=== PATIENT | female | born 1995 | race Caucasian/White ===

== ENCOUNTER 2019-06-30 23:55 | Observation (INO) | payer OTHER, SELFPAY ==
--- NOTE | ~2019-06-30 | XR_ITS ---
XR chest 2V DATE: 07/01/2019 00:55 INDICATION: Cough and congestion for one week TECHNIQUE: PA and lateral views COMPARISON: None FINDINGS: Normal heart size. No hilar or mediastinal enlargement is evident. There is patchy infiltra te in the right upper lobe. There is mild infiltrate in the right lower lung. The left lung appears c lear. No pleural effusion or pulmonary vascular congestion or pneumothorax. IMPRESSION: Right upper and minimal right lower lobe infiltrates. Pneumonia is suspected. Reviewed, dictated and finalized at location A. Y LEVEL PROGRAMMER
--- NOTE | ~2019-06-30 | CT_ITS ---
EXAMINATION: CTA chest PE protocol DATE: 07/01/2019 02:38 INDICATION: Shortness of breath. Elevated d-dimer. TECHNIQUE: Computed tomography angiography (CTA) of the chest was performed with 100 mL Omnipaque-350 intravenous contrast timed to evaluate the pulmonary arteries. Coronal maximum intensity projection 3D-reconstructions were created by the technologist. Automated exposure control and iterative reconst ruction technique were employed. Exam dose: 226.66 mGy-cm total exam DLP. COMPARISON: 07/01/2019 2 view chest FINDINGS: There is suboptimal opacification the pulmonary arteries. No apparent central pulmonary emb olism is identified. No thoracic aortic aneurysm or dissection. No hilar or mediastinal mass lesion or lymphadenopathy. Normal heart size. No pericardial or pleural effusion. Included upper abdominal structures including adrenal glands are unremarkable. There is prominent patchy right upper lobe consolidation and localized atelectasis/consolidation in t he posterolateral right lower lobe. There is minimal infiltrate or atelectasis in the left lower lobe . IMPRESSION: Suboptimal contrast enhancement of the pulmonary arteries; no apparent central pulmonary embolism Extensive right upper lobe consolidation and lesser right lower lobe and minimal left lower lobe infi ltrates, suggesting multilobar pneumonia Reviewed, dictated and finalized at Location [facility]. Reviewed, dictated and finalized at location A. BASE SECURITY ADMINISTRATOR IMPRESSION: Suboptimal contrast enhancement of the pulmonary arteries; no appa rent central pulmonary embolism Extensive right upper lobe consolidation and lesser right lower lobe and minima l left lower lobe infiltrates, suggesting multilobar pneumonia
[2019-06-30 23:59] VITALS: BP 119/82; PULSE 120; RESP 20; TEMP 36.9; O2SAT 96
[2019-07-01] VITALS (15 sets, daily range): BP systolic 112–132; BP diastolic 58–77; PULSE 97–118; RESP 16–20; TEMP 36.7–38.1; O2SAT 92–99; BMI 24.4
--- NOTE | 2019-07-01 00:48 | ED.URI ---
HPI - URI/Sore Throat General Chief Complaint: Upper Respiratory Infection Stated Complaint: bronchitis Time Seen by Provider: 07/01/19 00:29 Source: patient and RN notes reviewed Mode of arrival: ambulatory Limitations: no limitations History of Present Illness HPI Narrative: Pt is a 24 y/o female who presents to the ED with c/o nonproductive cough and chest congestion starting 1 week ago. She notes that she feels like she has phlegm stuck in her airway, but denies producing any phlegm with her cough. Pt also reports chest tightness, wheezing, and a subjective fever. She states that she believes she may have bronchitis. She notes that she took an OTC medication for her cough earlier today. Pt states that she is currently taking control. MD elicited complaint: cough and other (chest congestion) Onset (ago): week(s) (1) Associated symptoms: fever (subjective), nasal congestion and other (chest tightness; wheezing) Treatments prior to arrival: cold medicine Related Data Home Medications Medication Instructions Recorded Confirmed levonorgestrel-ethinyl estrad 1 tablet PO DAILY 07/01/19 [Aviane] Allergies Allergy/AdvReac Type Severity Reaction Status Date / Time No Known Allergies Allergy Verified 06/30/19 23:56 Review of Systems Review of Systems: All systems reviewed & are unremarkable except as noted in HPI and below Constitutional: Constitutional: Reports fever(s) (subjective) ENT: Reports nasal congestion Cardiovascular: Cardiovascular: Reports other (chest tightness) Respiratory: Respiratory: Reports chest congestion, Reports cough and Reports wheezing PMFSH Past Medical History Medical History Healthy female adult Surgical History Surgical History No significant past surgical history Family History Family History (Updated 01/07/14 @ 07:13 by DOCTOR UNKNOWN) Grandparent Hypertension Father Family history of elevated blood lipids Social History Social History Smoking status: Never smoker Second hand tobacco smoke exposure: No Alcohol intake: never Gender identity (if verbalized by the patient): Female Exam Const: General: cooperative, healthy appearing, comfortable, no acute distress, well developed, alert and awake; No confusion Orientation/consciousness: oriented to person, oriented to place, oriented to time, patient oriented x3 and No confusion Limitations: no limitations HENMT: Head: normal to inspection, normocephalic and atraumatic Mouth: Yes Normal oral and palatal mucosa present, Yes lip normal, Yes tongue normal and Yes oropharynx normal Throat: posterior oropharynx normal, tonsils normal and uvula midline Neck: Neck: normal visual inspection Chest: Chest palpation & inspection: normal inspection of the chest Resp: Effort & Inspection: normal respiratory effort, able to speak in complete sentences, no respiratory distress and not tachypneic Auscultation: clear to auscultation bilaterally, no crackles, no rales, no rhonchi and no wheezes Cardio: Rate: regular rate Rhythm: regular rhythm GI: Inspection: normal to inspection GI Palp: No abdominal tenderness, Yes Soft to palpation, No Tenderness to palpation present (GI), No Guarding due to palpation present (GI), No Rigid due to palpation and No Rebound tenderness present Auscultation: normal bowel sounds Skin: General skin exam: normal color, no rashes or lesions noted, elasticity normal and turgor normal Neuro: General: oriented to person, oriented to place, oriented to time, patient oriented x3, tone normal, moves all extremities, Normal light touch and pain sensation, no meningeal signs, no focal motor deficits, CN's II-XI intact bilaterally and No confusion Cranial nerves: Yes Equal, round and reactive pupils present Speech: No Abnormal speech present Sensor
[2019-07-01 01:14] LABS: Basophils Percent Auto 0.4 % (0.2-1.2); Eosinophils Absolute Auto 0.1 K/mm3 (0-0.3); Eosinophils Percent Auto 1.9 % (0-4.4); Hematocrit 39.4 % (37.0-47.0); Hemoglobin 13.6 g/dL (12.0-15.0); Immature Granulocyte Absolute 0.01 K/mm3 (0.00-0.031); Immature Granulocyte Percent A 0.2 % (0-0.5); Lymphocytes Absolute Auto 1.05 K/mm3 (0.9-3.2); Lymphocytes Percent Auto 18.6 % (18.3-44.2); Mean Corpuscular HGB Conc 34.5 g/dl (32-36); Mean Corpuscular Hemoglobin 29.2 pg (26-34); Mean Corpuscular Volume 84.5 fl (80-100); Mean Platelet Volume 9.6 fl (7.4-10.4); Monocytes Absolute Auto 0.5 K/mm3 (0.1-0.6); Monocytes Percent Auto 8.3 % (2.6-8.5); Neutrophils Percent Auto 70.6 % (45.5-73.1); Platelet Count Result 209 k/mm3 (150-375); Red Blood Count 4.66 M/mm3 (4.2-5.4); Red Cell Distribution Width 11.7 % (11.5-14.5); White Blood Count 5.7 K/mm3 (4.5-10.0)
[2019-07-01 01:21] LABS: Blood Urea Nitrogen 5 mg/dL (7-17); Calcium 8.8 mg/dL (8.4-10.2); Carbon Dioxide 23 mmol/L (22-30); Chloride 101 mmol/L (98-107); Estimated CRCL calculation 104 ml/min; Estimated Glomerular Filt Rate > 60; Glucose 111 mg/dL (65-105); Potassium 3.9 mmol/L (3.4-5.0); Sodium 135 mmol/L (137-145)
[2019-07-01 01:22] LABS: D Dimer 1.33 ug/mL (<0.48)
[2019-07-01 01:33] LABS: Troponin I < 0.012 ng/mL (0.000-0.034)
--- NOTE | 2019-07-01 02:29 | PC.NURSE ---
Patient taken to CT.
[2019-07-01] MEDS: SODIUM CHLORIDE 0.9% IV 1,000 ML 999 ML IV CONT (03:27)
--- NOTE | 2019-07-01 04:17 | PM.IMHP ---
H&P: HPI History of Present Illness Chief complaint: pneumonia Narrative: This is a pleasant 24 year old female previously known to be healthy who presented to the hospital with a complaint of chest congestion and a poorly productive cough for the past week. Associated symptoms include fever, diaphoresis, sore throat, chest tightness, and wheezing. She has also noticed decreased urine output and decreased appetite. Sick contacts++ as her boyfriend and sister both have had viral symptoms. The patient was evaluated in the ER tonight and found to have upper lobe pneumonia on CTA chest. The patient admits she did not receive a flu shot this year. No other complaints. Review of Systems Review of Systems: All systems reviewed & are unremarkable except as noted in HPI and below PMFSH Past Medical History Medical History Healthy female adult Surgical History Surgical History No significant past surgical history Family History Family History Grandparent Hypertension Father Family history of elevated blood lipids Social History Social History Smoking status: Never smoker Second hand tobacco smoke exposure: No Alcohol intake: never Substance use: never Gender identity (if verbalized by the patient): Female Spiritual care concerns: No Agree to blood products: No Meds Home Medications and Allergies Home Medications Medication Instructions Recorded Confirmed Type levonorgestrel-ethinyl estrad 1 tablet PO DAILY 07/01/19 07/01/19 History [Aviane] Allergies Allergy/AdvReac Type Severity Reaction Status Date / Time No Known Allergies Allergy Verified 06/30/19 23:56 Vital Signs Vital Signs - 24 hr 06/30/19 23:59 07/01/19 00:27 07/01/19 00:29 Temperature 36.9 C 37.5 C Pulse Rate 120 H 113 H Respiratory Rate 20 20 Blood Pressure 119/82 132/76 Pulse Oximetry 96 99 99 07/01/19 03:25 Temperature 38.1 C H Pulse Rate 109 H Respiratory Rate 20 Blood Pressure 114/70 Pulse Oximetry 96 Exam Const: General: cooperative, alert, awake, ill appearing, tired appearing and other (dehydrated++) Nutritional Appearance: well nourished Orientation/consciousness: patient oriented x3 HENMT: Head: normal to inspection General nose exam: Normal external nose present Face and sinus: normal facial exam Mouth: Yes Normal oral and palatal mucosa present and Yes oropharynx normal Eyes: Pupils: Equal, round and reactive pupils present EOM: EOMs intact bilaterally Neck: Neck: supple and no JVD Thyroid: thyroid normal Lymphatic: lymphadenopathy not noted Resp: Effort & Inspection: normal respiratory effort Auscultation: rales (upper+) bilateral Cardio: Rate: tachycardic Rhythm: regular rhythm Heart sounds: no murmurs GI: Inspection: normal to inspection Auscultation: normal bowel sounds Skin: General skin exam: normal color and no rashes or lesions noted Neuro: General: patient oriented x3 Cranial nerves: Yes CN's II-XII intact bilaterally and Yes Equal, round and reactive pupils present Speech: normal speech Motor exam (neuro): 5/5 motor strength present throughout Sensory Exam: normal sensation Extrem: General: normal to inspection and no edema Psych: Mental Status: mental status grossly normal Affect: normal affect H&P: Results Labs Labs: Short CBC 07/01/19 Range/Units 01:02 WBC 5.7 (4.5-10.0) K/mm3 Hgb 13.6 (12.0-15.0) g/dL Hct 39.4 (37.0-47.0) % Plt Count 209 (150-375) k/mm3 [facility] 07/01/19 01:02 Sodium 135 L Potassium 3.9 Chloride 101 Carbon Dioxide 23 BUN 5 L Creatinine 0.60 L Glucose 111 H Calcium 8.8 Cardiac Enzymes 07/01/19 Range/Units 01:02 Troponin I < 0.012 (0.000-0.034) ng/mL Ass
--- NOTE | 2019-07-01 04:52 | ADMGEN ---
This patient, Jeanna Jensen, was admitted to 2 Medical Room 242-. Patient/family oriented to hospital policies and general routines including ID bracelet, bed and alarms, visiting hours, pain management, procedures, bathroom and other care routines, personal items, smoking policy, room service/diet, and visiting hours. Valuables list has been completed. Information on how to activate the Rapid Response Team has been discussed. Patient/Family are encouraged to report perceived risks to care and to ask questions if they do not understand what they are told or what they should do.
[2019-07-01] MEDS: LACTATED RINGERS 1,000 ML 125 ML IV CONT ×3 (05:07→20:34)
[2019-07-01] MEDS: GUAIFENESIN/DEXTROMETHORPHAN 10 ML UDC PO (05:50)
[2019-07-01] MEDS: MELATONIN 3 MG TABLET PO ×2 (05:52→20:33)
[2019-07-01] MEDS: BENZOCAINE/MENTHOL (*BKC) 18 EA LOZENGE 1 LOZENGE PO (11:41)
--- NOTE | 2019-07-01 16:17 | PM.IMPN ---
Progress Note: A&P Assessment and Plan (1) Community acquired pneumonia: Qualifiers: Laterality: right Lung location: unspecified part of lung Qualified Code(s): J18.9 - Pneumonia, unspecified organism Code(s): J18.9 - Pneumonia, unspecified organism Status: Acute Assessment and Plan: -----continue ceftriaxone and azithromycin as well as breathing treatments. Influenza is negative. White blood cell count is okay. No hypoxia noted. (2) Dehydration: Code(s): E86.0 - Dehydration Status: Acute Assessment and Plan: Patient is drinking orally and doing well. She does have a decreased appetite. (3) Sinus tachycardia: Code(s): R00.0 - Tachycardia, unspecified Status: Acute Assessment and Plan: -----secondary to pneumonia. No pain to palpation or worrisome signs or symptoms. Continue to monitor Additional Plan Date of service was 07/01/2019 at 4 am. Time Spent With Patient Time with patient: 25 - 35 minutes Subjective Date/time seen: 07/01/19 16:17 Interval history: Pt is a 24-year-old female here for pneumonia. Patient was seen today and states her breathing and dyspnea on exertion is much better. She feels slightly dyspneic when walking to the bathroom but has improved significantly since yesterday. She said she is still coughing but not coughing up anything. She has not felt febrile. She denies nausea, vomiting, diarrhea, constipation, abdominal pain, or leg swelling. No chest pain today or palpitations. She says she has a decreased appetite. Review of Systems Review of Systems: All systems reviewed & are unremarkable except as noted in HPI and below Exam Narrative: Exam Narrative: General: Well developed well nourished patient resting comfortably in bed in NAD HEENT: normocephalic Neck: supple Neuro: Alert and oriented x4 CV:RRR on exam today. No murmurs Resp: Decreased breath sounds in the right lung but overall good breath sounds with no wheezing or rhonchi. Abd: Soft, non distended. No pain to palpation. Positive bowel sounds Extremities: No swelling, erythema, or pain to palpation. Objective Data Vital Signs Vital Signs: Vital Signs - 24 hr 06/30/19 23:59 07/01/19 00:27 07/01/19 00:29 Temperature 98.5 F 99.5 F Pulse Rate 120 H 113 H Respiratory Rate 20 20 Blood Pressure 119/82 132/76 Pulse Oximetry 96 99 99 07/01/19 03:25 07/01/19 04:20 07/01/19 06:00 Temperature 100.5 F H 100.3 F H 98.5 F Pulse Rate 109 H 107 H 107 H Respiratory Rate 20 20 18 Blood Pressure 114/70 120/77 117/58 L Pulse Oximetry 96 98 97 07/01/19 08:36 07/01/19 08:37 07/01/19 08:40 Temperature Pulse Rate 102 H 105 H Respiratory Rate 18 18 Blood Pressure Pulse Oximetry 92 07/01/19 14:00 07/01/19 15:06 07/01/19 15:13 Temperature 98.1 F Pulse Rate 97 102 H 104 H Respiratory Rate 16 18 18 Blood Pressure 112/60 Pulse Oximetry 97 Intake/Output Intake/Output: Intake & Output 06/28/19 06/29/19 06/30/19 07/01/19 23:59 23:59 23:59 23:59 Intake Total 2300 Output Total 600 Balance 1700 Meds/Results Medications: Active Medications Generic Name Dose Route Start Last Admin Trade Name Freq PRN Reason Stop Dose Admin Acetaminophen 650 mg 07/01/19 04:34 Tylenol Tablet PO Q4H PRN Mild Pain (1-3) or Fever Benzocaine 1 lozenge 07/01/19 10:25 07/01/19 11:41 Chloraseptic Lozenge PO 1 lozenge PRN PRN Administration Sore Throat Guaifenesin/Dextromethorphan 10 ml 07/01/19 05:19 07/01/19 05:50 Robitussin-Dm Syrup PO 10 ml Q4H PRN Administration Cough Lactated Ringer's 1,000 mls @ 125 mls/hr 07/01/19 03:35 07/01/19 12:29 Lr - Lactated Ringers Iv IV CONT 125 mls/hr .Q8H ANNA Administration Ceftriaxone Sodium/Dextrose 1 gm in 50 mls @ 100 mls/hr 07/02/19 06:00 Rocephin 1 Gm/D5w 50 Ml IVPB Q24H ANNA Azithromycin 250 mg/
--- NOTE | 2019-07-01 19:09 | PHAR ---
Aviane 0.1 mg/0.02 mg was seen in pharmacy and sent back up to 2 medical.
[2019-07-02] VITALS (11 sets, daily range): BP systolic 119–121; BP diastolic 59–69; PULSE 87–108; RESP 14–20; TEMP 36–37.2; O2SAT 96–99
[2019-07-02] MEDS: LACTATED RINGERS 1,000 ML 125 ML IV CONT ×2 (04:42→17:49)
[2019-07-02 05:58] LABS: Basophils Percent Auto 0.4 % (0.2-1.2); Eosinophils Absolute Auto 0.1 K/mm3 (0-0.3); Eosinophils Percent Auto 2.4 % (0-4.4); Hematocrit 35.9 % (37.0-47.0); Hemoglobin 11.8 g/dL (12.0-15.0); Immature Granulocyte Absolute 0.01 K/mm3 (0.00-0.031); Immature Granulocyte Percent A 0.2 % (0-0.5); Lymphocytes Absolute Auto 1.42 K/mm3 (0.9-3.2); Mean Corpuscular HGB Conc 32.9 g/dl (32-36); Mean Corpuscular Volume 88.2 fl (80-100); Mean Platelet Volume 10.2 fl (7.4-10.4); Monocytes Absolute Auto 0.4 K/mm3 (0.1-0.6); Monocytes Percent Auto 7.9 % (2.6-8.5); Neutrophils Absolute Auto 3.1 K/mm3 (1.3-6.7); Neutrophils Percent Auto 61.1 % (45.5-73.1); Platelet Count Result 198 k/mm3 (150-375); Red Blood Count 4.07 M/mm3 (4.2-5.4); White Blood Count 5.1 K/mm3 (4.5-10.0)
[2019-07-02 06:21] LABS: Blood Urea Nitrogen 3 mg/dL (7-17); Calcium 8.3 mg/dL (8.4-10.2); Carbon Dioxide 24 mmol/L (22-30); Chloride 102 mmol/L (98-107); Estimated CRCL calculation 120 ml/min; Estimated Glomerular Filt Rate > 60; Glucose 117 mg/dL (65-105); Magnesium 2.1 mg/dL (1.6-2.3); Potassium 3.6 mmol/L (3.4-5.0); Sodium 139 mmol/L (137-145)
[2019-07-02] MEDS: ACETAMINOPHEN 325 MG TABLET 650 MG PO (07:10)
--- NOTE | 2019-07-02 11:43 | PM.IMPN ---
Progress Note: A&P Assessment and Plan (1) Community acquired pneumonia: Qualifiers: Laterality: right Lung location: unspecified part of lung Qualified Code(s): J18.9 - Pneumonia, unspecified organism Code(s): J18.9 - Pneumonia, unspecified organism Status: Acute Assessment and Plan: continue ceftriaxone and azithromycin (day #3) as well as breathing treatments. Influenza is negative. White blood cell count is okay. No hypoxia noted. Will stay for another day of abx and likely d/c tomorrow. She will need to find a PCP and follow up with them and get a CXR in 6 weeks after. (2) Dehydration: Code(s): E86.0 - Dehydration Status: Acute Assessment and Plan: -----improved. Pt is not eating and drinking well and her appetite has improved. (3) Sinus tachycardia: Code(s): R00.0 - Tachycardia, unspecified Status: Acute Assessment and Plan: -----Likely secondary to pneumonia and dehydration. monitor heart rate. no symptoms. Additional Plan Date of service was 07/01/2019 at 4 am. Subjective Date/time seen: 07/02/19 11:43 Interval history: Pt is a 24-year-old female here for pneumonia. Patient was seen today with mom at bedside and states she is feeling much better. Her cough has improved and she has no HILL or SOB. She is still not coughing up anything. She started her menstrual cycle and is having cramps and requested NSAIDs. She denies chest pain or palpitations. Exam Narrative: Exam Narrative: General: Well developed well nourished patient resting comfortably in bed in NAD HEENT: normocephalic Neck: supple Neuro: Alert and oriented x4 CV:RRR on exam today. No murmurs Resp: Decreased breath sounds in the right lung but overall good breath sounds with no wheezing or rhonchi. Abd: Soft, non distended. No pain to palpation. Positive bowel sounds Extremities: No swelling, erythema, or pain to palpation. Objective Data Vital Signs Vital Signs: Vital Signs - 24 hr 07/01/19 14:00 07/01/19 15:06 07/01/19 15:13 Temperature 98.1 F Pulse Rate 97 102 H 104 H Respiratory Rate 16 18 18 Blood Pressure 112/60 Pulse Oximetry 97 02/19/20 19:31 07/01/19 19:36 07/01/19 19:37 Temperature Pulse Rate 103 H 105 H Respiratory Rate 18 18 Blood Pressure Pulse Oximetry 98 07/01/19 22:00 07/02/19 01:43 07/02/19 01:50 Temperature 98.0 F Pulse Rate 118 H 108 H 103 H Respiratory Rate 16 18 18 Blood Pressure 124/66 Pulse Oximetry 99 07/02/19 06:00 07/02/19 07:55 07/02/19 08:05 Temperature 99.0 F Pulse Rate 101 H 102 H 105 H Respiratory Rate 16 20 20 Blood Pressure 121/69 Pulse Oximetry 98 Intake/Output Intake/Output: Intake & Output 06/29/19 06/30/19 07/01/19 07/02/19 23:59 23:59 23:59 23:59 Intake Total 4740 1630 Output Total 2400 650 Balance 2340 980 Meds/Results Medications: Active Medications Generic Name Dose Route Start Last Admin Trade Name Freq PRN Reason Stop Dose Admin Acetaminophen 650 mg 07/01/19 04:34 07/02/19 07:10 Tylenol Tablet PO 650 mg Q4H PRN Administration Mild Pain (1-3) or Fever Benzocaine 1 lozenge 07/01/19 10:25 07/01/19 11:41 Chloraseptic Lozenge PO 1 lozenge PRN PRN Administration Sore Throat Guaifenesin/Dextromethorphan 10 ml 07/01/19 05:19 07/01/19 05:50 Robitussin-Dm Syrup PO 10 ml Q4H PRN Administration Cough Lactated Ringer's 1,000 mls @ 125 mls/hr 07/01/19 03:35 07/02/19 04:42 Lr - Lactated Ringers Iv IV CONT 125 mls/hr .Q8H ANNA Administration Ceftriaxone Sodium/Dextrose 1 gm in 50 mls @ 100 mls/hr 07/02/19 06:00 07/02/19 06:15 Rocephin 1 Gm/D5w 50 Ml IVPB Infused Q24H ANNA Infusion Azithromycin 250 mg/ Dextrose 250 mls @ 250 mls/hr 07/02/19 04:00 07/02/19 05:52 IVPB Infused Q24H ANNA Infusion Ibuprofen 400 mg 07/02/19 07:44 Motrin PO Q6H
[2019-07-02 18:21] LABS: Pneumococcal Antigen Urine Not Detected (Not Detected)
[2019-07-02] MEDS: MELATONIN 3 MG TABLET PO (20:11)
[2019-07-03 01:55] VITALS: PULSE 86; RESP 20; O2SAT 97
[2019-07-03] MEDS: IBUPROFEN 400 MG TABLET PO ×2 (02:00→11:04)
[2019-07-03] MEDS: LACTATED RINGERS 1,000 ML 125 ML IV CONT (02:00)
[2019-07-03 02:05] VITALS: PULSE 88; RESP 20
--- NOTE | 2019-07-03 03:36 | PCRCNOTE ---
[facility]
[2019-07-03 04:47] VITALS: BP 115/60; PULSE 80; RESP 16; TEMP 36.3; O2SAT 98
[2019-07-03 05:57] LABS: Alanine Aminotransferase 32 U/L (4-35); Albumin Level 3.9 g/dL (3.5-5.1); Alkaline Phosphatase 52 U/L (38-126); Aspartate Amino Transferase 32 U/L (14-36); Bilirubin,Total 0.2 mg/dL (0.2-1.3); Blood Urea Nitrogen 3 mg/dL (7-17); Calcium 8.9 mg/dL (8.4-10.2); Carbon Dioxide 27 mmol/L (22-30); Chloride 103 mmol/L (98-107); Estimated CRCL calculation 120 ml/min; Estimated Glomerular Filt Rate > 60; Glucose 117 mg/dL (65-105); Potassium 3.8 mmol/L (3.4-5.0); Sodium 140 mmol/L (137-145)
[2019-07-03 06:35] LABS: HIV 1/2 Ab P24 Ag Result Negative (Negative)
[2019-07-03 06:50] LABS: Hematocrit 37.8 % (37.0-47.0); Hemoglobin 12.5 g/dL (12.0-15.0); Mean Corpuscular HGB Conc 33.1 g/dl (32-36); Mean Corpuscular Hemoglobin 29.1 pg (26-34); Mean Corpuscular Volume 87.9 fl (80-100); Mean Platelet Volume 10.2 fl (7.4-10.4); Platelet Count Result 258 k/mm3 (150-375); White Blood Count 4.9 K/mm3 (4.5-10.0)
[2019-07-03 08:13] VITALS: PULSE 84; RESP 18; O2SAT 98
[2019-07-03 08:27] VITALS: PULSE 86; RESP 20
--- NOTE | 2019-07-03 12:34 | PM.DS ---
DS: Diagnosis Admitting Diagnosis Admitting Diagnosis: Pneumonia, unspecified organism Discharge Diagnosis (1) Community acquired pneumonia: Qualifiers: Laterality: right Lung location: unspecified part of lung Qualified Code(s): J18.9 - Pneumonia, unspecified organism Code(s): J18.9 - Pneumonia, unspecified organism Status: Acute (2) Dehydration: Code(s): E86.0 - Dehydration Status: Acute (3) Sinus tachycardia: Code(s): R00.0 - Tachycardia, unspecified Status: Acute DS: Summary Hospital Course Reason for hospitalization: Pneumonia Hospital Course: Female who presented emergency room with nonproductive cough, congestion, and shortness of breath with wheezing. Patient states her family members are also sick. Vitals in the ER were temperature 36.9?, pulse 120, respiratory rate 20, blood pressure 119/82, pulse ox 96 on room air. Initial white blood cell count 5.7. Influenza screen negative. Showed no pulmonary emboli but did show extensive right upper lobe consolidation consistent with multi lobar pneumonia. Patient was admitted to the hospitalist service and started on azithromycin and ceftriaxone. She received 3 days of IV antibiotics and her symptoms improved greatly. She was not able to produce a sputum sample to be sent to the lab. Her wheezing, shortness of breath, and dyspnea on exertion had resolved but the day of discharge. She was no longer tachycardic. Because of her extensive pneumonia she was tested for HIV which was negative. Patient and family educated about follow-up at discharge. She is to have a chest x-ray in 6 weeks. She does not currently have a primary care physician but she made an appointment with an [facility] provider and is going to see them in 2 weeks. Patient was educated about taking all the antibiotics even if she starts to feel better as well as the worrisome signs and symptoms to come back to emergency room for and was discharged in stable condition. Status at Discharge Functional status at discharge: independent ambulation Overall status at discharge: patient is back to baseline Time Spent with Patient Time attestation: Total time spent providing and/or coordinating discharge services:34 min Time spent: Greater than 30 minutes Exam Narrative: Exam Narrative: General: Well developed well nourished patient resting comfortably in bed in NAD HEENT: normocephalic Neck: supple Neuro: Alert and oriented x4 CV:RRR on exam today. No murmurs Resp: Decreased breath sounds in the right lung but overall good breath sounds with no wheezing or rhonchi. Abd: Soft, non distended. No pain to palpation. Positive bowel sounds Extremities: No swelling, erythema, or pain to palpation. DS: Data Data Completed and Pending Labs on day of discharge: Labs from last 24 hours 07/03/19 07/03/19 07/03/19 04:58 04:58 04:58 WBC 4.9 RBC 4.30 Hgb 12.5 Hct 37.8 MCV 87.9 MCH 29.1 MCHC 33.1 RDW 12.0 Plt Count 258 MPV 10.2 Sodium 140 Potassium 3.8 Chloride 103 Carbon Dioxide 27 BUN 3 L Creatinine 0.50 L Estim Creat Clear Calc 120 Estimated GFR > 60 Glucose 117 H Calcium 8.9 Total Bilirubin 0.2 AST 32 ALT 32 Alkaline Phosphatase 52 Total Protein 8.0 Albumin 3.9 HIV 1&2 Ab/P24 Ag 4thGn Negative Urine Pneumococcal Ag 07/01/19 10:35 WBC RBC Hgb Hct MCV MCH MCHC RDW Plt Count MPV Sodium Potassium Chloride Carbon Dioxide BUN Creatinine Estim Creat Clear Calc Estimated GFR Glucose Calcium Total Bilirubin AST ALT Alkaline Phosphatase Total Protein Albumin HIV 1&2 Ab/P24 Ag 4thGn Urine Pneumococcal Ag Not detected Preliminary micro results at discharge 07/01/19 03:36 Blood Culture - Preliminary Blood 07/01/19 03:36 Blood Culture - Preliminary Blood Discharge Plan Discharge Attending physician on dis
[2019-07-04 15:13] LABS: Legionella pneumophila Ag Ur Not Detected (Not Detected)
--- NOTE | 2019-07-07 11:01 | PC.NURSE ---
Legionella screen is negative. JOSE Jaime aware.
== END 2019-07-03 13:27 | disposition home or self-care (01) ==
LOC: ANHED 07-01 03:35 → ANH2MED 07-01 03:59
PROVIDERS: Physician Assistant; Admitting Provider Family Medicine; Emergency Provider Emergency Medicine; Visit Provider Internal Medicine
DX: J18.9 Pneumonia, unspecified organism (principal); E86.0 Dehydration; Z79.3 Long term (current) use of hormonal contraceptives
CPT/HCPCS: 36415; 71046; 71275; 80048; 80053; 81025; 83735; 84484; 85025; 85027; 85380; 86703; 87040; 87449; 87804; 87899; 94640; 96361; 96365; 96367; 99285; A9270; G0378; G0432; J0456; J0696; J7030; J7060; J7120; Q9967